=== PATIENT | female | born 1960 | race Two or more races ===

== ENCOUNTER 2019-01-20 09:41 | Day surgery (SDC) | payer MEDICAID ==
[~2019-01-20] VITALS: Ht 157.5 cm; Wt 80.7 kg
[~2019-01-20 09:41] MED LIST: BALANCED SALT IRRIG SOLN COMB1 500ML OP ONE; CYCLOPENTOLATE HCL 1% OPHTH DROPS 2ML RIGHTEYE SCH; PHENYLEPHRINE HCL 10% OPHTH DROPS 5ML RIGHTEYE SCH; TROPICAMIDE 1% OPHTH DROPS 15ML RIGHTEYE SCH
[2019-01-20] MEDS ORDERED: FENTANYL CITRATE/PF 50MCG/ML 2ML VIAL ONE (10:58)
[2019-01-20] MEDS ORDERED: MIDAZOLAM HCL 2 MG/2 ML VIAL ONE ×2 (10:58→11:20)
[2019-01-20] MEDS ORDERED: HYALURONATE SODIUM 14 MG/ML 0.85ML SYRINGE IO ONE (11:00)
[2019-01-20] MEDS ORDERED: KETOROLAC 30MG/ML VIAL ONE (11:06)
[2019-01-20] MEDS ORDERED: PROPOFOL 200MG/20ML VIAL IV ONE (11:13)
[2019-01-20] MEDS ORDERED: LISI40TA4 PO (11:38)
[2019-01-20] MEDS ORDERED: SIMV20TA6 PO (11:38)
[2019-01-20] MEDS ORDERED: HYDR25TA PO (11:38)
[2019-01-20] MEDS ORDERED: METF-414 PO (11:38)
[2019-01-20] MEDS ORDERED: CHOL20004 PO (11:38)
[2019-01-20] MEDS ORDERED: GABA-531 PO (11:38)
[2019-01-20] MEDS ORDERED: LEVO50TA8 PO (11:38)
[2019-01-20] MEDS ORDERED: OMEP20TA2 PO (11:38)
[2019-01-20] MEDS ORDERED: IBUP-2030 PO (11:38)
[2019-01-20] MEDS ORDERED: BALANCED SALT IRRIG SOLN 15ML ONE (12:00)
[2019-01-20] MEDS ORDERED: NEO/POLYMYX B SULF/DEXAMETH OPHTH OINT 3.5GM ONE (12:00)
[2019-01-20] MEDS ORDERED: PREDNISOLONE ACETATE 1% OPHTH DROPS 5ML ONE (12:00)
[2019-01-20] MEDS ORDERED: TETRACAINE 0.5% OPHTH DROPS 4ML ONE (12:00)
[2019-01-20] MEDS ORDERED: LIDOCAINE HCL/PF 2% 20 MG/ML 10ML VIAL ONE (12:00)
[2019-01-20] MEDS ORDERED: CIPROFLOXACIN 0.3% OPHTH SOLN 2.5ML ONE (12:00)
== END 2019-01-20 13:25 | disposition home or self-care (01) ==
LOC: OR 09:41
PROVIDERS: ATTEND Ophthalmology
DX: E11.36 Type 2 diabetes mellitus with diabetic cataract (principal); H25.89 Other age-related cataract; I10 Essential (primary) hypertension; E03.9 Hypothyroidism, unspecified; E78.5 Hyperlipidemia, unspecified; E11.40 Type 2 diabetes mellitus with diabetic neuropathy, unspecified; M17.0 Bilateral primary osteoarthritis of knee; Z79.84 Long term (current) use of oral hypoglycemic drugs; Z79.899 Other long term (current) drug therapy; Z90.710 Acquired absence of both cervix and uterus
CPT/HCPCS: 66984; 82962; 93005; J1885; J2250; J3010; J3490; V2632; J2704

== ENCOUNTER 2019-04-07 09:19 | Day surgery (SDC) | payer MEDICAID ==
[~2019-04-07] VITALS: Ht 157.5 cm; Wt 80.7 kg
[~2019-04-07 09:19] MED LIST changes: +BALANCED SALT IRRIG SOLN 15ML ONE; -BALANCED SALT IRRIG SOLN COMB1 500ML OP ONE; +CHOL20004 PO; +CIPROFLOXACIN 0.3% OPHTH SOLN 2.5ML ONE; -CYCLOPENTOLATE HCL 1% OPHTH DROPS 2ML RIGHTEYE SCH; +GABA-531 PO; +HYDR25TA PO; +IBUP-2030 PO; +LEVO50TA8 PO; +LIDOCAINE HCL/PF 2% 20 MG/ML 10ML VIAL ONE; +LISI40TA4 PO; +METF-414 PO; +OMEP20TA2 PO; -PHENYLEPHRINE HCL 10% OPHTH DROPS 5ML RIGHTEYE SCH; +PHENYLEPHRINE HCL 2.5% OPHTH DROPS 2ML ONE; +PREDNISOLONE ACETATE 1% OPHTH DROPS 5ML ONE; +SIMV20TA6 PO; +TETRACAINE 0.5% OPHTH DROPS 4ML ONE; -TROPICAMIDE 1% OPHTH DROPS 15ML RIGHTEYE SCH
[2019-04-07] MEDS ORDERED: PHENYLEPHRINE HCL 10% OPHTH DROPS 5ML LEFTEYE ONE (09:30)
[2019-04-07] MEDS ORDERED: CYCLOPENTOLATE HCL 1% OPHTH DROPS 2ML LEFTEYE ONE (09:30)
[2019-04-07] MEDS ORDERED: TROPICAMIDE 1% OPHTH DROPS 15ML LEFTEYE ONE (09:30)
[2019-04-07 10:31] LABS: BASOPHILS % 0.7 % (0.0-2.0); EOSINOPHILS % 2.6 % (0.0-5.0); HEMATOCRIT. 33.9 % (36.0-48.0); LYMPHOCYTES % 25.8 % (20.0-50.0); MEAN CORPUSCULAR HEMOGLOBIN 24.8 pg (28.0-32.0); MEAN CORPUSCULAR VOLUME 76.3 fL (81.0-99.0); MEAN PLATELET VOLUME 9.4 fl (7.4-10.4); MONOCYTES % 7.9 % (2.0-8.0); PLATELET 215 x1000/uL (130-400); RED BLOOD CELL COUNT 4.44 mill/uL (4.2-5.4); RED CELL DISTRIBUTION WIDTH 16.2 % (11.6-14.6)
[2019-04-07 10:37] LABS: CHLORIDE 103 mEq/L (98-107)
[2019-04-07] MEDS ORDERED: SODIUM CHLORIDE 0.9% 1,000 ML IV SCH (11:30)
[2019-04-07] MEDS ORDERED: FENTANYL CITRATE/PF 50MCG/ML 2ML VIAL ONE (11:57)
[2019-04-07] MEDS ORDERED: MIDAZOLAM HCL 2 MG/2 ML VIAL ONE (11:57)
[2019-04-07] MEDS ORDERED: LABETALOL HCL 5MG/ML VIAL 20ML IV ONE (12:00)
[2019-04-07] MEDS ORDERED: HYALURONATE SODIUM 14 MG/ML 0.85ML SYRINGE IO ONE (12:04)
[2019-04-07] MEDS ORDERED: ONDANSETRON HCL 4MG/2ML INJ IV PRN (12:30)
[2019-04-07] MEDS ORDERED: LABETALOL 5MG/ML SYR 20 MG/4 ML SYRINGE IV PRN (12:30)
[2019-04-07] MEDS ORDERED: KETOROLAC 30MG/ML VIAL ONE (12:31)
== END 2019-04-07 14:00 | disposition home or self-care (01) ==
LOC: OR 09:19
PROVIDERS: ATTEND Ophthalmology
DX: E11.36 Type 2 diabetes mellitus with diabetic cataract (principal); H25.89 Other age-related cataract; E03.9 Hypothyroidism, unspecified; I10 Essential (primary) hypertension; E78.00 Pure hypercholesterolemia, unspecified; K21.9 Gastro-esophageal reflux disease without esophagitis; E66.9 Obesity, unspecified; E11.40 Type 2 diabetes mellitus with diabetic neuropathy, unspecified; M17.0 Bilateral primary osteoarthritis of knee; Z79.84 Long term (current) use of oral hypoglycemic drugs; Z79.899 Other long term (current) drug therapy; Z90.710 Acquired absence of both cervix and uterus; Z98.890 Other specified postprocedural states; Z68.37 Body mass index [BMI] 37.0-37.9, adult
CPT/HCPCS: 36415; 66984; 80048; 82962; 85025; 93005; J1885; J2250; J3010; J3490; V2632